=== PATIENT | female | born 1990 | race African-American/Black ===

== ENCOUNTER 2020-11-25 15:44 | Emergency (ER) | payer SELFPAY ==
[~2020-11-25] VITALS: Ht 162.6 cm; Wt 51.0 kg
[2020-11-25 16:25] VITALS: BP 120/77
[2020-11-25] MEDS ORDERED: ACETAMINOPHEN 325MG TABLET PO STA (16:30)
[2020-11-25 17:15] LABS: BASOPHILS % 0.7 % (0.0-2.0); EOSINOPHILS % 5.6 % (0.0-5.0); HEMATOCRIT. 38.4 % (36.0-48.0); HEMOGLOBIN. 13.2 g/dL (12.0-16.0); LYMPHOCYTES % 39.1 % (20.0-50.0); MEAN CORPUSCULAR HEMOGLOBIN 32.1 pg (28.0-32.0); MEAN CORPUSCULAR VOLUME 93.4 fL (81.0-99.0); MEAN PLATELET VOLUME 7.1 fl (7.4-10.4); MONOCYTES % 7.7 % (2.0-8.0); NEUTROPHILS % 46.9 % (40.0-76.0); PLATELET 323 x1000/uL (130-400); RED BLOOD CELL COUNT 4.11 mill/uL (4.2-5.4); RED CELL DISTRIBUTION WIDTH 14.9 % (11.6-14.6)
[2020-11-25 17:28] LABS: CHLORIDE 109 mEq/L (98-107); HCG SCREEN NEGATIVE
[2020-11-25 17:31] LABS: ETHANOL BLOOD 149 mg/dL
[2020-11-25 17:48] LABS: PROTHROMBIN TIME 10.7 sec (9.6-11.0)
== END 2020-11-25 18:07 | disposition home health service (06) ==
LOC: ER 16:15
DX: S13.4XXA Sprain of ligaments of cervical spine, initial encounter (principal); S43.402A Unspecified sprain of left shoulder joint, initial encounter; Z13.9 Encounter for screening, unspecified; Y04.0XXA Assault by unarmed brawl or fight, initial encounter; Y93.89 Activity, other specified; Y92.89 Other specified places as the place of occurrence of the external cause; Y99.8 Other external cause status
CPT/HCPCS: 36415; 80053; 80320; 84703; 85025; 99283; G0480

== ENCOUNTER 2020-12-06 23:27 | Emergency (ER) | payer MEDICAID, OTHER ==
[~2020-12-06] VITALS: Ht 165.1 cm; Wt 57.0 kg
[2020-12-06] MEDS ORDERED: ACETAMINOPHEN 325MG TABLET PO ONE (23:45)
[2020-12-07] MEDS ORDERED: ACET-2708 MT (01:13)
[2020-12-07 02:08] VITALS: BP 134/60
== END 2020-12-07 02:10 | disposition home or self-care (01) ==
LOC: ER 23:27
DX: M25.572 Pain in left ankle and joints of left foot (principal); Z98.890 Other specified postprocedural states; X50.1XXA Overexertion from prolonged static or awkward postures, initial encounter; Y93.89 Activity, other specified; Y92.488 Other paved roadways as the place of occurrence of the external cause
CPT/HCPCS: 73610; 73630; 99284